=== PATIENT | female | born 1980 | race Caucasian/White ===

== ENCOUNTER 2023-08-07 02:15 | Emergency (ER) | payer BC, SELFPAY ==
[2023-08-07 02:19] VITALS: BP 147/92; PULSE 108; RESP 18; TEMP 35.9; O2SAT 100
--- NOTE | 2023-08-07 02:41 | ED_ITS ---
HPI - SOB/Dyspnea General Chief Complaint: Shortness of Breath/Dyspnea Stated Complaint: pain in middle of chest and short of breath Time Seen by Provider: 08/07/23 02:27 History of Present Illness HPI Narrative: Patient is a 42-year-old woman who smokes a pack cigarettes per day who presents with 1 week cough and congestion. She has had no upper airway symptoms or cough is deep in her chest. She has pain in her right breast when she coughs. She has had no hemoptysis no fevers no chills no night sweats no overt chest pain. She has been around no sick people and has had no recent travel. Her EKG shows sinus rhythm without acute ST T wave changes upon my review. Related Data Home Medications Medication Instructions Recorded Confirmed albuterol 90 mcg/actuation aerosol mcg inhalation 08/07/23 inhaler Allergies Allergy/AdvReac Type Severity Reaction Status Date / Time No Known Drug Allergies Allergy Verified 08/07/23 02:22 Review of Systems Status of ROS: Reports: 10 or more systems reviewed and unremarkable except as noted in History and below [facility] Medical History Reactive airway disease ?J45.909 - Unspecified asthma, uncomplicated (ICD-10) Social History Non-prescribed substance use: denies use service: No Exam Narrative: Exam Narrative: EXAM GENERAL: Patient appears comfortable and well. EYES: No scleral icterus. LYMPH: No supraclavicular or cervical lymphadenopathy. SKIN: Visible skin seen during exam normal or with benign process only. EXT: No dependent lower extremity pedal edema. HEART: Regular rate and rhythm with no murmurs, rubs, or gallops. LUNGS: Coarse breath sounds with expiratory wheezes bilaterally. ABD: Soft, non tender, non distended. PSYCH: Good eye contact, speech is not pressured. Const: Vital Signs, click to edit/add: Vital Signs - 24 hr 08/07/23 02:19 Temperature 96.7 F L Pulse Rate [Left P ulse Oximeter] 108 H Respiratory Rate 18 Blood Pressure [Ri ght Upper Arm] 147/92 H Pulse Oximetry 100 Oxygen Delivery Me thod Room Air Course Course ED Course: Patient seen examined. X-ray ordered EKG reviewed. Vital Signs Vital signs: Initial Vital Signs Temperature 96.7 F L 08/07/23 02:19 Temperature Source Temporal Artery Scan 08/07/23 02:19 Pulse Rate 108 H 08/07/23 02:19 Pulse Rhythm Regular 08/07/23 02:19 Respiratory Rate 18 08/07/23 02:19 Blood Pressure 147/92 H 08/07/23 02:19 Blood Pressure Mean 110 H 08/07/23 02:19 Blood Pressure Position Sitting 08/07/23 02:19 Pulse Oximetry 100 08/07/23 02:19 Oxygen Delivery Method Room Air 08/07/23 02:19 Vital Signs Temperature 96.7 F L 08/07/23 02:19 Pulse Rate 108 H 08/07/23 02:19 Respiratory Rate 18 08/07/23 02:19 Blood Pressure 147/92 H 08/07/23 02:19 Pulse Oximetry 100 08/07/23 02:19 Oxygen Delivery Method Room Air 08/07/23 02:19 Temperature 96.7 F L 08/07/23 02:19 Pulse Rate 108 H 08/07/23 02:19 Respiratory Rate 18 08/07/23 02:19 Blood Pressure 147/92 H 08/07/23 02:19 Pulse Oximetry 100 08/07/23 02:19 Oxygen Delivery Method Room Air 08/07/23 02:19 MDM - SOB/Dyspnea MDM Narrative Medical decision making narrative: Patient presents with a nonproductive cough general malaise for the last week. She is an avid cigarette smoker and is motivated to quit. Chest x-ray and EKG are unremarkable upon my review. This time I did treated with Z-Jaime albuterol and recommend she follow-up with me in the office for smoking cessation. Differential diagnosis includes but not limited to pneumonia unstable angina bronchitis COVID-19 viral infection Discharge Plan Discharge Clinical Impression: Bronchitis Patient Disposition: Home, Self-Care Condition: Stable Instructions: Acute Bronchitis (ED) Additional Instructions: Carlos Eduardo-Jaime as directed Follow-up with Dr. Braga to discuss smoking cessation Activity Level: No Restrictions Discharge Diet: Regular Prescriptions: No Action albuterol 90 mcg/actuation aerosol inhalation Follow Up/Referrals: Jaden Parsons MD [Primary Care Provider] - Stand Alone Forms: [employer] Info Instructions
--- NOTE | 2023-08-07 02:41 | CRLHL7_ITS ---
For Patients: As a result of the Century Cures Act, medical imaging exams and procedure reports are released immediately into your electronic medical record. You may view this report before your referring provider. If you have questions, please contact your health care provider. Indication: Cough Technique: Chest 2 view. Comparison: None Findings: Cardiovascular and mediastinum: Heart size and vasculature are normal in caliber and appearance. Mediastinum is within normal limits. Lungs and pleural space: Lungs are clear. No sign of infiltrate or mass. No sign of pleural effusion. No pneumothorax. Bones and soft tissues: No significant findings. Impression: No sign of acute disease. Dictated by Justyna Morris MD @ 08/07/2023 3:54:00 AM (Electronically Signed)
== END 2023-08-07 03:18 | disposition home or self-care (01) ==
PROVIDERS: Emergency Provider Internal Medicine; PCP Family Medicine
DX: J40 Bronchitis, not specified as acute or chronic (principal)
CPT/HCPCS: 71046; 93005; 99283; 99284

== ENCOUNTER 2023-12-03 02:22 | Emergency (ER) | payer BC, SELFPAY ==
[2023-12-03 02:38] VITALS: BP 135/81; PULSE 80; RESP 18; TEMP 36.8; O2SAT 97; BMI 30.3
--- NOTE | 2023-12-03 02:42 | ED.GENADULT ---
HPI - General Adult General Chief complaint: Cough Stated complaint: cough, shortness of breath Time Seen by Provider: 12/03/23 02:42 History of Present Illness HPI narrative: Pt states she has been sick for a week with fever/chills, cough with green sputum and shortness of breath with exertion. [facility]. Pt states amoxicillin gives her diarrhea and requesting Zithromax. 43-year-old woman presenting to the emergency department concern of a believe primarily potential pneumonia. She reports having gotten sick before and benefiting from a Z-Jaime. Was thought to have some sinus tenderness today a bit during clinic visit and I believe prescribed amoxicillin-containing product for suspected sinus infection? Considering that Ms. Mars reports the amoxicillin tends to produce diarrhea I wonder if this is actually Augmentin that she has been receiving. Fever during his last week. Initially what was facial symptoms is now gone to her chest. She is more short of breath. Productive cough. She does smoke. Admits that she is afraid of medications. Had not taken anything to treat initial head cold/URI symptoms. Does have an albuterol inhaler. Not clear to me that there has been formal testing for asthma versus COPD. Related Data Home Medications Medication Instructions Recorded Confirmed albuterol 90 mcg/actuation aerosol mcg inhalation 08/07/23 inhaler Previous Rx's Medication Instructions Recorded doxycycline hyclate 100 mg tablet 100 mg PO BID 8 days #16 tabs 12/03/23 Allergies Allergy/AdvReac Type Severity Reaction Status Date / Time No Known Drug Allergies Allergy Verified 12/02/23 16:30 Review of Systems Status of ROS: Reports: 6 or more systems reviewed and unremarkable except as noted in History and below [facility] Medical History Reactive airway disease ?J45.909 - Unspecified asthma, uncomplicated (ICD-10) Social History Non-prescribed substance use: denies use service: No Exam Narrative: Exam Narrative: Does not appear to be in particular distress. Easily conversant. Initially I thought slightly stridorous. Otherwise does have trace end-expiratory wheezing/squeaks in the right upper and lower lung horowitz. Does sound congested in the nasopharynx without particular tenderness. She does report some tenderness in her forehead because she has been tapping at it trying to get sinuses to drain. TMs are clear. Oropharynx is moist. Mild erythema posteriorly. Neck is supple without cervical lymphadenopathy. Heart in regular rate and rhythm. Const: Vital Signs, click to edit/add: Vital Signs - 24 hr 12/03/23 02:38 Temperature 98.3 F Pulse Rate [Pulse Oximeter] 80 Respiratory Rate 18 Blood Pressure [Ri ght Upper Arm] 135/81 Pulse Oximetry 97 Oxygen Delivery Me thod Room Air Documenting provider has reviewed patient's vital signs: yes Course Vital Signs Vital signs: Initial Vital Signs Temperature 98.3 F 12/03/23 02:38 Temperature Source Temporal Artery Scan 12/03/23 02:38 Pulse Rate 80 12/03/23 02:38 Pulse Rhythm Regular 12/03/23 02:38 Respiratory Rate 18 12/03/23 02:38 Blood Pressure 135/81 12/03/23 02:38 Blood Pressure Mean 99 12/03/23 02:38 Blood Pressure Position Supine 12/03/23 02:38 Pulse Oximetry 97 12/03/23 02:38 Oxygen Delivery Method Room Air 12/03/23 02:38 Vital Signs Temperature 98.3 F 12/03/23 02:38 Pulse Rate 80 12/03/23 02:38 Respiratory Rate 18 12/03/23 02:38 Blood Pressure 135/81 12/03/23 02:38 Pulse Oximetry 97 12/03/23 02:38 Oxygen Delivery Method Room Air 12/03/23 02:38 Temperature 98.5 F 12/03/23 04:19 Pulse Rate 76 12/03/23 04:19 Respiratory Rate 16 12/03/23 04:19 Blood Pressure 135/76 12/03/23 04:19 Pulse Oximetry 97 12/03/23 02:38 Oxygen Delivery Method Room Air 12/03/23 02:38 Medical Decision Making MDM Narrative Medical decision making narrative: Discussed options in care. At most has sinusitis regarding facial symptoms. May have pneumonia and I think it might be beneficial to do a chest x-ray to be more certain; particular in light of smoking history. I suspect more of a bronchitis picture here though. It also appears as though could benefit from more formal testing and better treatment for might be some underlying COPD as well. I did offer nebulization treatment here in the emergency department and/or steroid. Ultimately and in conversation with significant other who accompanies here today, we settled on a chest x-ray in evaluation. It sounds as though some of her reticence toward having a chest x-ray was that she had had one later last year and was concerned about radiation. We discussed this concern as well. Chest x-ray reviewed by me looks to be absent infiltrate. Normal cardiac silhouette. No notable no evidence of fluid congestion. See patient discharge plan Discharge Plan Discharge Clinical Impression: URI (upper respiratory infection), Bronchitis Patient Disposition: Home w/ Parent or Adult Condition: Stable Additional Instructions: As a said, I do not see a pneumonia or other concern in your chest x-ray. I will call you if Radiology has more to say about this. Focus on hydration...with water. Staying hydrated helps clear up mucus/congestion. Consider use of a Neti pot and nasal saline rinses. Pseudoephedrine can be helpful for drying the congestion. I personally like the 12 hour formulation. You might sleep under the mist of a cool mist humidifier. Menthol vapors might be helpful. I do think it would be a good idea to get in with your primary care provider and do more formal lung function testing to get a solid diagnosis and to be sure that you are receiving optimal treatment. And of course do your best to quit smoking. Prednisone from [facility]. Take the prednisone as 20 mg twice a day or 40 mg once daily for 5-6 days. If you are just not improved in 3 days after taking treatment/medications as above, or seem to be worsening, we have sent in a prescription of doxycycline to the pharmacy where it will be on hold for you. Prescriptions: New doxycycline hyclate 100 mg tablet 100 mg PO BID 8 Days Qty: 16 0RF No Action albuterol 90 mcg/actuation aerosol inhalation Follow Up/Referrals: Jaden Parsons MD [Referring] - Stand Alone Forms: [employer] Info Instructions
--- NOTE | 2023-12-03 03:04 | XR_ITS ---
Patient: TYE MCCOLLUM Facility:?[facility] Patient ID:?[id number] Site Patient ID:?[id number]. Site :?1980 Study:?XRay-Chest 2 IMAGES-12/03/2023 3:22:11 AM Ordering Physician:GRETA Final Report: Indication: Cough, chills Technique: Two views of the chest Comparison: Chest radiograph performed 08/07/2023 Findings: No organized consolidation. No pneumothorax. No effusion. Cardiac silhouette is unremarkable. No acute osseous abnormality appreciated. Impression: No acute cardiopulmonary process detected. Dictated by Gab Morrow MD @ 12/03/2023 3:43:32 AM Signed by:?Gab Morrow MD @12/03/2023 3:43:32 AM (Electronic Signature)
[2023-12-03 04:19] VITALS: BP 135/76; PULSE 76; RESP 16; TEMP 36.9
== END 2023-12-03 04:19 | disposition home or self-care (01) ==
PROVIDERS: Emergency Provider Family Medicine
DX: J06.9 Acute upper respiratory infection, unspecified (principal); J40 Bronchitis, not specified as acute or chronic
CPT/HCPCS: 71046; 99283; 99284

== ENCOUNTER 2024-02-24 14:10 | Outpatient (CLI) | payer BC, SELFPAY ==
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
== END 2024-02-24 14:11 | disposition home or self-care (01) ==
PROVIDERS: Visit Provider Physician Assistant
DX: Z01.419 Encounter for gynecological examination (general) (routine) without abnormal findings (principal); D64.9 Anemia, unspecified; N93.8 Other specified abnormal uterine and vaginal bleeding; Z12.4 Encounter for screening for malignant neoplasm of cervix; Z13.6 Encounter for screening for cardiovascular disorders; Z13.9 Encounter for screening, unspecified; Z13.29 Encounter for screening for other suspected endocrine disorder
CPT/HCPCS: 80053; 80061; 82728; 84443

== ENCOUNTER 2024-04-23 00:55 | Emergency (ER) | payer BC, SELFPAY ==
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
[2024-04-23 01:24] VITALS: BP 163/97; PULSE 80; RESP 16; TEMP 37.1; O2SAT 99; BMI 29.3
--- OUTSIDE RECORDS SUMMARY | 2024-04-23 04:14 | XMS_ITS | Clinical Summary ---
Author Organization [employer] [facility] Address [place], [place] [address] Care Team Providers Care Supervisor Public Health Nursing Name Role Phone Clinic, No Pcp Or [...] Overview: now Supervision of other normal 05/27/2021 Encounters Date Type Department Care Team Description 02/25/2024 Lab Requisition [facility] [phone] Taty, Ju GENARO Szymanski from Last 3 Months Immunizations Name Administration Dates Next Due DTaP [...] Sex Assigned at Female 08/19/2020 2:46 PM LONG WINDER TENDER Gender Identity Female 08/19/2020 2:46 PM LONG WINDER TENDER Sexual Orientation Straight 08/19/2020 2: 46 PM LONG WINDER TENDER Obstetrics History Para Term AB IAB SAB Ectopic Multiple Livin g Live Births 3 2 Date Outcome GA Total Labor Labor/2nd/3rd Weight Sex Type Anes PTL Karla A1 A5 Name Clin Para Para Last Filed Vital Signs Vital Sign Reading Time Taken Comments Blood Pressure 128/86 01/03/2019 2:59 PM CDT Pulse 89 01/03/2019 2:59 PM CDT Temperature 37 ??C (98.6 ??F) 01/03/2019 2:59 PM CDT Respiratory Rate 20 08/28/2009 2:14 PM LONG WINDER TENDER Oxygen Saturation 98% 01/03/2019 2:59 PM CDT [...] 01/04/2020 01/04/20 19, 04/06/2017 COVID-19 vaccine series ( season) 2023 06/10/2021 Influenza for age 9-49 06/11/2024 Pap test for age 21-65 02/23/2029 , 02/24/2024, 01/03/2019, Additional history exists Hepatitis C screening for ag e 18-79 Completed 06/18/2010, 08/07/2008 HIV for age 15-65 Completed 07/11/2014, , 08/07/2008 Procedures Procedure Name Priority Date/Time Associated Diagnosis Comments LAB TRACKING EVENT Routine 02/24/2024 2: 10 PM CDT LARD REFINER THIN PREP PAP SCREEN IMAGED Routine 02/24/2024 2:10 PM CDT HPV THIN PREP Routine 02/24/2024 2:10 PM CDT ANTI HIV 1/2 Routine 07/11/2014 11:51 AM CDT Screen for STD (sexually transmitted disease) ANTI HCV Routine 06/18/2010 11:49 AM CDT Screening for STDs (sexually transmitted diseases) from Last 3 Months or Most Recently Relevant to Health Maintenance Results * LAB TRACKING EVENT (02/24/2024 2:10 PM CDT) Other (Other) Client Collect / Unknown 02/24/2024 2:10 PM CDT 02/25/2024 4:23 PM CDT Ju Posey PA-C LAB BILL ONLY [facility] [address] [place] [address], * LARD REFINER THIN PREP PAP SCREEN IMAGED (02/24/2024 2:10 PM CDT) Case Report Gynecologic Cytology Report ? Case: [id number] ? Authorizing Provider: ??Ju Posey PA-C ?Collected: ? 02/24/2024 1410 ? Ordering Location: ? [facility] ?Received: ?02/28/2024 1002 ? First Screen: ?David Looney ? Specimen: ?LARD REFINER ThinPrep Vial Screening, Cervical ? 03/08/2024 2:15 PM CDT [facility] INTERPRETATION/ RESULT NEGATIVE FOR INTRAEPITHELIAL LESION OR MALIGNANCY (NIL) (none) 03/08/2024 2:15 PM CDT [facility] IMEN ADEQUACY Satisfactory for evaluation Endocervical component present 03/08/2024 2:15 PM CDT [facility] HPV REQUEST HPV and PAP 03/08/2024 2:15 PM CDT [facility] Date of LMP 02/24/2024 03/08/2024 2:15 PM CDT [facility] Last Pap Date 01/03/2019 03/08/2024 2:15 PM CDT [facility] Last Pap Result NIL 2:15 PM CDT [facility] Abnormal Pap or [place] Bx in last 5 years No 03/08/2024 2:15 PM CDT [facility] Menstrual Status Regular Periods 03/08/2024 2:15 PM CDT [facility] [place] Bx Done Today No 03/08/2024 2:15 PM CDT [facility] Additional Information 03/08/2024 2:15 PM CDT [facility] Comment: Interpreted at [facility] - [address] [place] [address] [place] [address] Automated Review Successful 03/08/2024 2:15 PM CDT [facility] Comment:Specimen processed s uccessfully by automated automation engineer device, ThinPrep Imaging System, [employer] ANCILLARY TESTING LARD REFINER HPV Ordered, Please see separate report 03/08/2024 2:15 PM CDT [facility] Note The pap test is a screening technique, not a diagnostic procedure. It is used primarily to screen for squamous cancers and precursor lesions. Published studies have shown that it is subject to both false negative and false positive results. The pap test should not be used as the sole means to diagnose or exclude pre-malignant and malignant lesions. 03/08/2024 2:15 PM CDT [facility] Other (Cervical) 02/24/2024 2:10 PM CDT 02/28/2024 10:02 AM CDT January Nessa ECKERT PATHOLOGY/CYTOLOGY Performing Organization Address [facility] Co de Phone Number [facility] [address] [place] [address], * HPV HIGH RISK (02/24/2024 2:10 PM CDT) TYPE 16 Negative Negative 02/29/2024 2:09 PM CDT [facility] TYPE 18 Negative Negative 02/29/2024 2:09 PM CDT [facility] OTHER HIGH RISK TYPES Negative Negative 02/29/2024 2:09 PM CDT [facility] Other (Cervical) 02/24/2024 2:10 PM CDT 02/28/2024 10:02 AM CDT Narrative [facility] - 02/29/2024 2:09 PM CDT HPV types 16, 18, 31, 33, 35, 39, 45, 51, 52, 56, 58, 59, 66 and 68 DNA were undetectable or below the pre-set threshold. Methodology: Enrike Marv 4800 HPV Test January Nessa ECKERT MICROBIOLOGY Performing Organization Address [facility] Co de Phone Number [facility] [address] [place] [address], * ANTI HIV 1/2 (07/11/2014 11:51 AM CDT) HIV-1/HIV-2 ANTIBODY Non-Reacti ve Non-Reacti ve 07/11/2014 5:05 PM CDT [facility] Blood specimen (specimen) BLOOD SPECIMEN / Unknown Butterfly / Unknown 07/11/2014 11:51 AM CDT 07/11/2014 11:51 AM CDT Narrative [facility] - 07/11/2014 5:05 PM CDT HIV-1 p24 and HIV-1/HIV-2 Ab not detected Jaden Parsons MD [facility] [address] [place] [address], * ANTI HCV (06/18/2010 11:49 AM CDT) ANTI HCV Non-reacti ve [facility] Blood specimen (specimen) BLOOD SPECIMEN / Unknown 06/18/2010 11:49 AM CDT 06/18/2010 11:42 AM CDT Raeann Alvares NP SEND OUTS [facility] [place] ZIP [address] [place] [id number] from Last 3 Months or Most Recently Relevant to Health Maintenance Care Teams Supervisor Public Health Nursing Relationship Specialty Start Date End Date Clinic, No Pcp Or . PCP - General 08/26/20
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
== END 2024-04-23 02:10 | disposition home or self-care (01) ==
PROVIDERS: Emergency Provider Internal Medicine
DX: S00.83XA Contusion of other part of head, initial encounter (principal); W31.9XXA Contact with unspecified machinery, initial encounter
CPT/HCPCS: 70450; 72125; 99283; 99285

== ENCOUNTER 2024-07-04 13:15 | Outpatient (CLI) | payer BC, SELFPAY ==
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
--- NOTE | 2024-07-04 13:20 | CRLHL7_ITS ---
For Patients: As a result of the Century Cures Act, medical imaging exams and procedure reports are released immediately into your electronic medical record. You may view this report before your referring provider. If you have questions, please contact your health care provider. BILATERAL SCREENING MAMMOGRAM WITH COMPUTER-AIDED DETECTION AND TOMOSYNTHESIS TECHNIQUE: CC and MLO views were obtained. These mammographic images have been obtained using full-field digital technique. These mammographic images were interpreted with the benefit of computer-aided detection. Breast Tomosynthesis was used in this interpretation. COMPARISON FILM: Baseline. FINDINGS: The breasts are heterogeneously dense, which may obscure small masses IMPRESSION: There is no radiographic evidence for malignancy. ASSESSMENT: BI-RADS Category 1: Negative RECOMMENDATION: Routine screening mammogram in 1 year. A lay language report of this examination will be provided to the patient. Shaun Estevez M.D. Diagnostic Radiologist [email or web address] JAMES/Dictated by: Shaun Estevez MD @ 07/12/2024 12:21:00 PM (Electronically Signed)
== END 2024-07-04 13:16 | disposition home or self-care (01) ==
PROVIDERS: Visit Provider Physician Assistant
DX: Z12.31 Encounter for screening mammogram for malignant neoplasm of breast (principal); R92.333 Mammographic heterogeneous density, bilateral breasts
CPT/HCPCS: 77063; 77067